=== PATIENT | male | born 1970 | race Caucasian/White ===

== ENCOUNTER → 2018-06-23 | Outpatient (CLI) | payer OTHER, SELFPAY ==
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
--- NOTE | 2018-06-23 06:40 | MRI_ITS ---
STUDY: MRI BRAIN WITH AND WITHOUT CONTRAST (ATTENTION INTERNAL AUDITORY CANALS - I.A.C.'s) REASON FOR EXAM: Male, 48 years old. Left tinnitus and hearing loss TECHNIQUE: Standardized multiplanar fat and water weighted pulse sequences were obtained. 17 IV Dotarem was administered for the contrast portion of the examination. COMPARISON: None. FINDINGS: Normal bilateral temporal bones. Normal bilateral internal auditory canals. There is no demonstrated intracanalicular or cisternal vestibular schwannoma (acoustic neuroma). There is no enhancement of the bilateral VIIth or VIIIth cranial nerves. Normal bilateral cochlea, vestibules and semicircular canals. Normal size of the ventricles and extra-axial spaces for the patient's age. Normal white matter tracts of the supratentorial brain. Normal bilateral basal ganglia. Normal thalami. Normal flow voids within the major intracranial circulation suggesting patency by spin echo criteria. Normal venous enhancement. There is no enhancing intra-axial or extra-axial abnormality. There is no extra-axial fluid accumulation. Normal sella turcica, pituitary gland, infundibular stalk, optic chiasm and hypothalamus. Normal tectal plate and pineal gland. Normal midbrain, edinson and medulla. Normal cerebellum. Normal basal cisterns. No demonstrated orbital abnormality, within the constraints of a routine brain study. Normal visualized paranasal sinuses. There is left nasal mucosal thickening and left nasal cavity narrowing. Normal calvarium and skull base. Normal visualized soft tissue structures. Normal visualized upper cervical spine. MRI/Brain W/WO Contrast IMPRESSION: Normal unenhanced and enhanced MRI of the bilateral internal auditory canals (I.A.C's). Electronically Signed: Yung Almaraz, at 11:46 EDT Tel , Service support ,
== END | disposition home or self-care (01) ==
PROVIDERS: Family Provider Family Medicine; PCP Family Medicine; Referring Provider Otolaryngology Otolaryngology/Facial Plastic Surgery; Visit Provider Otolaryngology Otolaryngology/Facial Plastic Surgery
DX: H93.12 Tinnitus, left ear (principal); H91.92 Unspecified hearing loss, left ear; M54.2 Cervicalgia
CPT/HCPCS: 70553; 72156; A9575

== ENCOUNTER → 2018-07-29 07:57 | Outpatient (CLI) | payer OTHER, SELFPAY ==
--- NOTE | 2018-07-29 07:58 | RAD_ITS ---
HISTORY: neck pain COMPARISON: Cervical spine MRI 06/23/2018 FINDINGS: XR Spine Cervical with lateral flexion-extension views for total 4 views Cervical vertebra show normal height and alignment. No fracture or suspicious bony lesion. With flexion and extension, adequate cervical spine mobility. No vertebral subluxation to suggest spinal instability. C5-6 and C6-7 disc space narrowing accompanied by anterior endplate spurring. The posterior elements appear intact. No spondylolisthesis. As visualized, the C1-C2 relationship appears normal. RAD/Cerv Spine 4 or 5 Views IMPRESSION: 1. C5-6 and C6-7 degenerative disc disease and spondylosis. 2. Normal cervical vertebral alignment. 3. No abnormal cervical motion to suggest cervical instability. at 0107 Reported and signed by: Murali Levine MD Electronically Signed: Murali Levine, at 1:06 EDT Tel , Service support ,
== END ==
PROVIDERS: Family Provider Family Medicine; PCP Family Medicine; Referring Provider Orthopaedic Surgery; Visit Provider Orthopaedic Surgery
DX: M54.12 Radiculopathy, cervical region (principal)
CPT/HCPCS: 72050

== ENCOUNTER 2018-09-11 09:00 | Outpatient (RCR) | payer OTHER, SELFPAY ==
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
--- NOTE | 2018-09-11 09:31 | HP.PTDCSUM ---
HP - PT D/C Summary It has been my pleasure to treat FRANNIE BOLANOS under orders from Ebonie Vargas MD, for the diagnosis of NECK PAIN for a total of 9 visit(s). Discharge Date: 09/11/18 Please see the following information for a summary of their discharge status. - Subjective Subjective: Doing much better ..increase ROM and able to do all work demands . - Pain Left Neck Pain Intensity (Out of 10): 0 - Objective Objective/Function: POSTURE: mild rounded shoulders. MMT: 5/5. CERVICAL ROM: flexion min loss,lateral flexion/rotation min/mod loss ,extension mod loss - Goals Goal 1:: Independant with HEP Goal Progress: Goal Met Goal 2:: Improve posture for ADL'S Goal Progress: Goal Met Goal 3:: Patient to decrease cervical pain by 70% or greater to improve function. Goal Progress: Goal Met Goal 4:: Patient to improve cervical ROM to improve function of recovery especially to left. Goal Progress: Goal Met Goal 5:: Patient to improve neck owestry by 5 points or greater to improve QOL. Goal Progress: Goal Met - Plan Plan: D/C TO HEP AND TRACTION UNIT - D/C Information Discharge Comments: HEP AND HOME CERVICAL TRACTION If there are questions or concerns regarding this patient's physical therapy, please feel free to call me at [phone]. Thank you for the referral of this patient. Sincerely, Kunal Lara, PT, Cert MDT, OCS
--- NOTE | 2018-09-11 09:36 | HP.PTDCSUM ---
HP - PT D/C Summary It has been my pleasure to treat FRANNIE BOLANOS under orders from Ebonie Vargas MD, for the diagnosis of NECK PAIN for a total of 9 visit(s). Discharge Date: 09/11/18 Please see the following information for a summary of their discharge status. - Subjective Subjective: Doing much better ..increase ROM and able to do all work demands . - Pain Left Neck Pain Intensity (Out of 10): 0 - Overall Improvement % Improvement: 75 - Objective Objective/Function: POSTURE: mild rounded shoulders. MMT: 5/5. CERVICAL ROM: flexion min loss,lateral flexion/rotation min/mod loss ,extension mod loss - Goals Goal 1:: Independant with HEP Goal Progress: Goal Met Goal 2:: Improve posture for ADL'S Goal Progress: Goal Met Goal 3:: Patient to decrease cervical pain by 70% or greater to improve function. Goal Progress: Goal Met Goal 4:: Patient to improve cervical ROM to improve function of recovery especially to left. Goal Progress: Goal Met Goal 5:: Patient to improve neck owestry by 5 points or greater to improve QOL. Goal Progress: Goal Met - Plan Plan: D/C TO HEP AND TRACTION UNIT - D/C Information Discharge Comments: HEP AND HOME CERVICAL TRACTION If there are questions or concerns regarding this patient's physical therapy, please feel free to call me at [phone]. Thank you for the referral of this patient. Sincerely, Kunal Lara, PT, Cert MDT, OCS
== END 2018-09-11 19:00 | disposition home or self-care (01) ==
LOC: PT 09:00
PROVIDERS: Family Provider Family Medicine; PCP Family Medicine; Visit Provider Orthopaedic Surgery
DX: M54.2 Cervicalgia (principal)
CPT/HCPCS: 97012; 97140; 97161

== ENCOUNTER 2018-10-03 22:33 | Emergency (ER) | payer OTHER, SELFPAY ==
[2018-10-03 22:34] VITALS: BP 86/56; PULSE 87; RESP 16; TEMP 36.8; O2SAT 98; BMI 29.9
[2018-10-03 22:54] VITALS: RESP 20
--- NOTE | 2018-10-03 23:09 | ED.VIS.GI ---
History of Present Illness Chief Complaint: Nausea/Vomiting Informant: Patient - Abdominal Pain/Flank Pain Onset: Hours - 2 Context: Sudden Onset - during car ride home from restaurant Timing: Continuous Quality: Cramping Location: Diffuse Current Severity: Mild Maximum Severity: Mild Worsened by: Food Relieved by: Nothing - Nausea/Vomiting/Emesis GI Symptom: Nausea, Vomiting Onset: Hours - 2 Quality: Nonbilious. Negative for: Blood streaks, Coffee ground, Hematemesis Severity: Severe - Diarrhea/Melena/Hematochezia GI Symptom: Negative for: Diarrhea, Melena, Hematochezia Associated Symptoms: Negative for: Dysuria, Frequency, Hematuria Narrative: Patient started vomiting on the restaurant tonight, he had steak and scallops in a nice restaurant in [place] that he was taking his to for their anniversary. He states earlier today, around 9-10 hours ago now, he had a grilled ham sandwich with tomato, lettuce, mayonnaise and was brought home by someone for him. He has had no diarrhea, near-syncope, or other symptoms. No recent antibiotics, hospitalization, or travel out of the area or the country. Past Medical History - Allergies and Home Meds Allergies/Adverse Reactions: Allergies No Known Allergies Allergy (Verified 10/03/18 22:37) Primary Care Physician: Jair Mann III, MD [Primary Care Provider] - Past Medical History: None Surgical History: no surgical history Lives: Spouse/ Significant Other Smoking Status: Never smoker Review of Systems General: Reports: Malaise. Denies: Chills, Fever Eyes: Denies: Visual changes - bilaterally, Diplopia ENT: Denies: Rhinorrhea, Sore throat Cardiovascular: Denies: Chest pain, Palpitations Respiratory: Denies: Dyspnea, Cough, Dyspnea on exertion Gastrointestinal: Reports: Abdominal pain, Nausea, Vomiting. Denies: Diarrhea, Melena, Hematochezia Genitourinary: Denies: Dysuria, Hematuria, Frequency Musculoskeletal: Denies: Back pain, Extremity Pain Skin: Denies: Rash, Wounds Neurological: Denies: Headache, Weakness, Numbness Physical Exam Vital Signs/Narrative: Vital Signs Temp Pulse Resp BP Pulse Ox 10/03/18 22:54 20 H 10/03/18 22:34 98.2 F 87 16 86/56 L 98 Inital Vital Signs reviewed: Yes General: Well nourished, Well developed, No Acute Distress Head: Normocephalic, Atraumatic Eyes: Perrl, EOMI ENT: Moist mucous membranes, No rhinorrhea Neck: Supple, Nontender Cardiovascular: Regular rate, Regular rhythm, No murmurs. Negative for: Tachycardia Respiratory: No distress, CTA bilaterally, Chest nontender Abdomen: Soft, Nontender, Nondistended, Normal bowel sounds Back: Nontender, Normal Inspection Extremities: Nontender, No edema Skin: Normal color, No rash, No Trauma Neurological: Alert, Oriented x3, Cranial nerves II-XII grossly intact, Normal Strength, Normal Sensation Psychological: Normal affect, Normal Mood Diagnostic/Tx/Re-eval - Medical Decision Making Patient was treated with IV fluids and Zofran on reevaluation he is feeling much better and tolerating oral fluids. No further vomiting in the emergency department and has developed no other symptoms. In further discussion he had some coleslaw at lunchtime as well, basically several foods containing mayonnaise and there are heat warnings out, and the food was delivered to him and unknown how long it had been since it had been served or its conditions, my suspicion is that he has had staphylococcal food poisoning from that. Supportive care is indicated for this, if he develops other issues like diarrhea or intractable vomiting he is encouraged to return to the ER, prescribe Zofran and he is comfortable with this plan. ED Disposition - Plan for ED Patient: Disposition: Home or Assisted Living Diagnosis: Acute gastritis without bleeding, Staphylococcal food poisoning Instructions: VOMITING (6y-Adult), FOOD POISONING (6yr-Adult) Prescriptions: Ondansetron [Zofran] 8 mg PO Q8H PRN #12 tab PRN Reason: Nausea/Vomiting Prescription Printed Referrals: Jair Mann III, MD [Primary Care Provider] - (2 to 3 days if not improving, or return to the ER)
[2018-10-03] MEDS: Ondansetron 4 MG/2 ML Vial IV (23:27)
[2018-10-04 01:14] VITALS: BP 118/75; RESP 16; O2SAT 95
[2018-10-04 01:25] VITALS: BP 108/72; PULSE 80; RESP 16; O2SAT 95
== END 2018-10-04 01:50 | disposition home or self-care (01) ==
PROVIDERS: Emergency Provider Emergency Medicine; Family Provider Family Medicine; PCP Family Medicine
DX: K29.00 Acute gastritis without bleeding (principal); A05.0 Foodborne staphylococcal intoxication
CPT/HCPCS: 99285; J7040; A4216; J2405

== ENCOUNTER 2021-06-29 10:35 | Outpatient (CLI) | payer OTHER, SELFPAY ==
[2021-06-29 12:25] LABS: AST(SGOT) 26 U/L (15-37); Alanine Aminotransfer ALT/SGPT 61 U/L (16-61); Albumin, Serum 4.3 g/dL (3.2-5.0); Alkaline Phosphatase 82 U/L (45-117); Anion Gap 6 (5-15); BUN 17 mg/dL (7-18); BUN/Creat Ratio 15.5 RATIO (10-20); Bilirubin, Direct 0.18 mg/dL (0.00-0.30); Chloride 103 mmol/L (98-107); Cholesterol 191 mg/dL (200); EST Glomerular Filtration Rate 76 mL/min (>60); Est Glom Filt Rate - Afr Amer 91 mL/min (>60); Globulin 3.5 g/dL (2.2-4.2); Glucose 105 mg/dL (74-106); High Density Lipoprotein 54 mg/dL; Protein, Total 7.8 g/dL (6.4-8.2); Sodium Level 134 mmol/L (136-145); Triglycerides 162 mg/dL; Very Low Density Lipoprotein 32 mg/dL (5-40)
== END 2021-06-29 23:59 | disposition home or self-care (01) ==
LOC: MFPLAB 10:36
PROVIDERS: PCP Family Medicine; Referring Provider Family Medicine; Visit Provider Family Medicine
DX: I10 Essential (primary) hypertension (principal); Z72.89 Other problems related to lifestyle
CPT/HCPCS: 36415; 80048; 80061; 80076

== ENCOUNTER → 2022-07-04 | Outpatient (CLI) | payer BC, SELFPAY ==
[2022-07-04 10:42] LABS: Hemoglobin A1c 5.1 % (3.8-5.6)
[2022-07-04 10:59] LABS: Anion Gap 5 (5-15); BUN 16 mg/dL (7-18); BUN/Creat Ratio 14.7 RATIO (10-20); Calcium,Total 9.4 mg/dL (8.5-10.1); Chloride 102 mmol/L (98-107); Cholesterol 201 mg/dL (200); Creatinine, Serum 1.09 mg/dL (0.70-1.30); EST Glomerular Filtration Rate 76 mL/min (>60); Est Glom Filt Rate - Afr Amer 92 mL/min (>60); Glucose 116 mg/dL (74-106); High Density Lipoprotein 51 mg/dL; PSA,Total - Annual Screen 0.86 ng/mL (0.00-4.00); Sodium Level 134 mmol/L (136-145); Triglycerides 249 mg/dL; Very Low Density Lipoprotein 50 mg/dL (5-40)
== END | disposition home or self-care (01) ==
LOC: MFPLAB 09:27
PROVIDERS: PCP Family Medicine; Referring Provider Family Medicine; Visit Provider Family Medicine
DX: I10 Essential (primary) hypertension (principal); Z12.5 Encounter for screening for malignant neoplasm of prostate; R53.83 Other fatigue
CPT/HCPCS: 36415; 80048; 80061; 83036; 84153; 84403; G0103

== ENCOUNTER → 2022-08-07 | Outpatient (CLI) | payer BC, SELFPAY ==
[2022-08-11 15:07] LABS: Testosterone, % Free 2.48 % (1.50-4.20); Testosterone, Free 7.51 ng/dL (5.00-21.00); Testosterone, Total 303 ng/dL (264-916)
== END | disposition home or self-care (01) ==
LOC: MFPLAB 08:22
PROVIDERS: PCP Family Medicine; Visit Provider Family Medicine
DX: R79.89 Other specified abnormal findings of blood chemistry (principal)
CPT/HCPCS: 36415; 84402; 84403

== ENCOUNTER → 2022-12-26 | Outpatient (CLI) | payer BC, SELFPAY ==
[2022-12-31 12:08] LABS: Testosterone, % Free 2.88 % (1.50-4.20); Testosterone, Free 6.83 ng/dL (5.00-21.00); Testosterone, Total 237 ng/dL (264-916)
== END | disposition home or self-care (01) ==
LOC: MFPLAB 08:13
PROVIDERS: PCP Family Medicine; Visit Provider Family Medicine
DX: R79.89 Other specified abnormal findings of blood chemistry (principal)
CPT/HCPCS: 36415; 84402; 84403

== ENCOUNTER 2024-10-12 12:38 | Emergency (ER) | payer BC, SELFPAY ==
[2024-10-12 12:39] VITALS: BP 140/97; PULSE 102; RESP 20; TEMP 36.6; O2SAT 98; BMI 30.4
--- NOTE | 2024-10-12 13:36 | ED.VIS.GI ---
HPI HPI - GI History of Present Illness Chief Complaint: Nausea/Vomiting Informant: patient Abdominal Pain/Flank Pain Onset: Yesterday Context: Sudden Onset Timing: Continuous Quality: Cramping Location: RLQ and LLQ Worsened by: Nothing Relieved by: Nothing Nausea/Vomiting/Emesis GI Symptom: Positive for Nausea; Negative for Vomiting Diarrhea/Melena/Hematochezia GI Symptom: Positive for Diarrhea and Hematochezia Stool Quality: Positive for BRB per rectum Episodes: 8 Associated Symptoms Associated Symptoms: Negative for Dysuria, Frequency or Hematuria Narrative Narrative: Patient presents with abdominal pain and hematochezia that began yesterday. Patient states she started having some lower abdominal pain yesterday. Patient states it felt like it was cramping. Patient states nothing makes it better and nothing makes it worse. Patient admits to some nausea but denies any vomiting. Patient states she started having watery diarrhea. Patient states that he developed bright red rectal bleeding. Patient states he has had approximately 8 episodes of rectal bleeding today. Patient denies any urinary complaints. Patient denies any fevers or chills but admits to some sweats. [facility] Medical History (Updated 10/12/24 @ 16:[address] Tera Ashton, DO) Sleep apnea Anxiety HTN (hypertension) Home Medications ?Medication ?Instructions ?Recorded ?Last Taken ?Type citalopram 10 mg tablet PO 90 days #45 tabs 07/29/18 Unknown History ondansetron HCl 8 mg tablet 8 mg PO Q8H PRN Nausea/Vomiting 10/04/18 Unknown Rx #12 tabs amlodipine 10 mg tablet 10 mg PO DAILY 10/12/24 Unknown History amoxicillin 875 mg-potassium 875 mg PO Q12H #20 TABLETS 10/12/24 Unknown Rx clavulanate 125 mg tablet hydrocodone-acetaminophen 5-325mg 1 tab PO Q6H PRN PRN Pain 3 days 10/12/24 Unknown Rx 5mg-325mg #10 TABLETS lisinopril 20 1 tab PO DAILY 10/12/24 Unknown History mg-hydrochlorothiazide 12.5 mg tablet Allergy/AdvReac Type Severity Reaction Status Date / Time No Known Allergies Allergy Verified 10/12/24 12:40 Surgical History (Updated 10/12/24 @ 16:[address] Tera Ashton, DO) Hx of vasectomy Social History Smoking Status: Never smoker ROS ROS ED Constitutional Constitutional ED: Reports sweats; Denies chills or fever(s) Eyes Eyes: Denies blurry vision or change in vision ENT ENT ED: Denies rhinorrhea or sore throat Cardiovascular Cardiovascular: Denies chest pain or palpitations Respiratory/Chest Respiratory/Chest: Denies cough or dyspnea Gastrointestinal Gastrointestinal: Reports abdominal pain, diarrhea and nausea; Denies vomiting Genitourinary Genitourinary ED: Denies dysuria or hematuria Musculoskeletal Musculoskeletal: Denies back pain or neck pain Integumentary Denies abscess or rash Neurologic Neurologic: Denies headache(s) or weakness Allergic/Immunologic Allergic/Immunologic ED: Denies mouth swelling or urticaria EXAM Physical Exam Const Vital Signs: 10/12/24 12:39 10/12/24 14:39 Temperature 97.9 F Temperature Source Oral Pulse Rate 102 H 93 Respiratory Rate 20 H 16 Blood Pressure 140/97 H 139/94 H Blood Pressure Mean 111 109 Pulse Ox 98 99 Oxygen Delivery Method Room Air Positive well nourished and well developed Constitutional Narrative: BMI is 30.5. General Appearance ED: well developed and NAD HEENT Reports moist mucous membranes Neck supple and no JVD Resp normal respiratory effort and clear to auscultation bilaterally Cardio regular rate and regular rhythm GI non-distended GI Narrative: Rectal exam showed good sphincter tone. There is a small amount of brown stool. This was Hemoccult positive. Palpation: soft and tender LLQ, RLQ, LUQ, suprapubic and Rovsing's sign (Negative); Negative for guarding or rebound tenderness present Extremity full ROM Neuro CN's II-XII intact bilaterally, moves all extremities and no sensory deficits noted Sensorium / Orientation: alert Motor Exam: strength 5/5 throughout MDM MDM MDM Narrative Medical decision making narrative: Differential diagnosis includes diverticulitis, lower gastrointestinal bleeding, colitis, urinary tract infection, and coagulopathy. CT scan of the abdomen pelvis will be obtained to assess for colitis, diverticulitis, bowel obstruction, perforation. CBC will be obtained to assess for leukocytosis and anemia. Comprehensive metabolic profile will be obtained to assess for hepatic function, renal function, and electrolyte abnormality. PT with INR and PTT will be obtained to assess for coagulopathy. Stool for occult blood will be obtained to assess for lower gastrointestinal bleeding. Urinalysis will be obtained to assess for urinary tract infection and hematuria. Lab Data Attestation: I reviewed the patient's lab results. Lab results narrative: CBC was reviewed. There is a slight leukocytosis of 12.9. Hemoglobin was actually elevated at 17.0. Platelets were normal. PT with INR and PTT were reviewed and were within normal limits. Comprehensive metabolic profile was reviewed. BUN was 20 and creatinine was slightly elevated at 1.23. Glucose was slightly elevated at 116. The remainder is within normal limits. Urinalysis was reviewed. There is no evidence of urinary tract infection or hematuria. Labs: Laboratory Results - last 24 hr 10/12/24 10/12/24 11:40 13:30 WBC 12.9 H RBC 5.43 Hgb 17.0 H Hct 48.2 MCV 88.8 MCH 31.3 MCHC 35.3 RDW Std Deviation 40.4 RDW Coeff of Jacob 12.4 Plt Count 253 MPV 11.6 Immature Gran % (Auto) 0.300 Neut % (Auto) 84.4 H Lymph % (Auto) 9.6 L [place] % (Auto) 5.1 Eos % (Auto) 0.3 Baso % (Auto) 0.3 Absolute Neuts (auto) 10.9 H Absolute Lymphs (auto) 1.23 Nucleated RBC % 0 PT 12.7 INR 0.9 APTT 28.3 Sodium 136 Potassium 4.2 Chloride 100 Carbon Dioxide 22.3 Anion Gap 14 BUN 20 H Creatinine 1.23 H Estim Creat Clear Calc 74.49 Est GFR (MDRD) Non-Af 71 BUN/Creatinine Ratio 16.3 Glucose 116 H Calcium 9.9 Total Bilirubin 0.76 AST 23 ALT 30 Alkaline Phosphatase 92 Total Protein 7.9 Albumin 4.7 Globulin 3.2 Albumin/Globulin Ratio 1.5 Urine Color Yellow Urine Clarity Clear Urine pH 6.0 Ur Specific [place] 1.015 Urine Protein 30 H Urine Glucose (UA) Normal Urine Ketones Negative Urine Occult Blood Negative Urine Nitrite Negative Urine Bilirubin Negative Urine Urobilinogen Normal Ur Leukocyte Esterase 25 H Urine RBC 0 SEEN Urine WBC 0-5 SEEN Ur Squamous Epith Cells 0 SEEN Urine Bacteria 0 SEEN Urine Mucus 1+ Radiography Diagnostic Testing: Clinical Impression(s) from Imaging Studies Abdomen/Pelvis CT 10/12/24 13:59 IMPRESSION: Findings suggestive of colitis of the descending colon and sigmoid colon as described. Diffuse fatty infiltration of the liver. Reading Location: [id number] scan of the abdomen and pelvis was obtained. There is colitis of the descending colon and sigmoid colon. There is sigmoid diverticulosis. There is no free air or free fluid. This was interpreted by the radiologist and was also independently reviewed by myself. Treatment and Re-Evaluation :: Patient was given IV fluids, morphine, and Zofran. Patient was given a dose of Zosyn here. Patient was advised of his findings. Patient has a Hancock score of 7. Patient was given prescription for Augmentin. Patient was instructed to follow-up with his primary care physician in 5 to 7 days. Patient was instructed to return if worse in any way. Patient understood and was agreeable with the plan. All questions were answered. Discharge Plan Triage Chief Complaint: Nausea/Vomiting ED Provider: Tera Ashton Dx/Rx/DC Orders Clinical Impression: Colitis, Lower gastrointestinal bleeding, Diverticulosis Instructions: ED Understanding Colitis, ED Diverticulosis Prescriptions: New amoxicillin-pot clavulanate 875-125 mg tablet 875 mg PO Q12H Qty: 20 0RF hydrocodone-acetaminophen 5-325 mg tablet 1 tab PO Q6H PRN PRN (Reason: Pain) 3 Days Qty: 10 0RF No Action citalopram 10 mg tablet PO 90 Days Qty: 45 ondansetron HCl 8 MG tablet 8 mg PO Q8H PRN (Reason: Nausea/Vomiting) Qty: 12 0RF lisinopril-hydrochlorothiazide 20-12.5 mg tablet 1 tab PO DAILY amlodipine 10 mg tablet 10 mg PO DAILY Primary Care Provider: Prosper Galicia Referrals: Prosper Galicia MD [Primary Care Provider] - 3-5 Days Print Language: Serbian Disposition Disposition: Home, Self Care
--- NOTE | 2024-10-12 13:59 | CT_ITS ---
PROCEDURE: ABDOMEN/PELVIS W IV CONT ONLY 10/12/2024 REASON FOR EXAM: ABDOMINAL PAIN TECHNIQUE: ABDOMEN/PELVIS W IV CONT ONLY Coronal and Sagittal reconstruction series were provided. CONTRAST: Isovue-300 VOLUME: 95 mL One or more dose reduction techniques were used (e.g., Automated exposure control, adjustment of the mA and/or kV according to patient size, use of iterative reconstruction technique. RADIATION DOSE SUMMARY: CTDlvol: 11.25 mGy DLP: 739.79 mGycm COMPARISON: None FINDINGS: Lung bases: Unremarkable Liver: Diffuse fatty infiltration. Gallbladder: Unremarkable Spleen: Normal size. Pancreas: Normal size without evidence of mass surrounding inflammation or ductal dilation. Adrenals: Unremarkable Kidneys: Normal renal sizes. No hydronephrosis. Bladder: Unremarkable Bowel: Circumferential wall thickening and increased markings in the surrounding peritoneal fat in the descending colon as well as sigmoid colon. Colitis should be ruled out. There is also evidence of sigmoid diverticulosis. Appendix: Visualized and unremarkable. Lymph nodes: No suspicious lymph node enlargement. Vasculature: Mild diffuse atherosclerotic calcifications are noted. Bones: Unremarkable CT/Abdomen/Pelvis W IV Cont ONLY IMPRESSION: Findings suggestive of colitis of the descending colon and sigmoid colon as vijay cribed. Diffuse fatty infiltration of the liver. Reading Location: [facility]
[2024-10-12 14:16] LABS: Hematocrit 48.2 % (40-54); Hemoglobin 17.0 g/dL (13.0-16.5); Immature Granulocytes Count 0.040 X10^3/uL (0.0-0.0); Mean Corp Hgb Conc 35.3 g/dL (32-36); Mean Corpuscular Volume 88.8 fL (80-94); Mean Platelet Vol. 11.6 fl (6.2-12.0); NRBC Flagged by Analyzer 0 % (0-5); Platelet Count 253 K/mm3 (150-450); RBC Distribution Width CV 12.4 % (11.6-14.6); RBC Distribution Width SD 40.4 fl (35.1-43.9); Red Blood Count 5.43 M/mm3 (4.6-6.2); White Blood Count 12.9 K/mm3 (4.4-11.0)
[2024-10-12 14:24] LABS: Partial Thromboplast Time 28.3 Seconds (24.1-36.2); Prothrombin Time (Protime)PT. 12.7 SECONDS (11.7-14.9)
[2024-10-12] MEDS: 0.9% Normal Saline (1000mL) 1,000 ML 999 ML IV (14:36)
[2024-10-12 14:39] VITALS: BP 139/94; PULSE 93; RESP 16; O2SAT 99
[2024-10-12 14:41] LABS: AST(SGOT) 23 U/L (<=37); Alanine Aminotransfer ALT/SGPT 30 U/L (<=46); Albumin, Serum 4.7 g/dL (3.5-5.0); Alkaline Phosphatase 92 U/L (40-129); Anion Gap 14 (5-15); BUN 20 mg/dL (4-19); BUN/Creat Ratio 16.3 RATIO (10-20); Calcium,Total 9.9 mg/dL (7.6-11.0); Carbon Dioxide 22.3 mmol/L (21.0-32.0); Chloride 100 mmol/L (98-108); Estimated Creatinine Clearance 74.49 ml/min (50-250); Globulin 3.2 g/dL (2.2-4.2); Glucose 116 mg/dL (70-99); Potassium 4.2 mmol/L (3.3-5.1)
[2024-10-12 14:48] LABS: Red Blood Cells-Urine 0 SEEN /hpf (0-5); Squamous Epithelial Cells - UA 0 SEEN /hpf (0-5)
[2024-10-12 14:49] LABS: Color, Urine Yellow (Yellow); Glucose, Dipstick Normal (Normal); Ketone-Dipstick Negative (Negative); Leukocyte Esterase-Dipstick 25 /ul (Negative); Nitrite-Dipstick Negative (Negative); Occult Blood-Urine Negative /ul (Negative); Protein-Dipstick 30 mg/dl (Negative); Specific Gravity, Urine 1.015 (1.002-1.030); Urine Bilirubin Dipstick Negative (Negative)
[2024-10-12 14:55] LABS: Mucous, Urine 1+ /hpf (<or=2+)
[2024-10-12] MEDS: Piperacil/Tazobactam 4.5 GM in 0.9% Normal Saline (100mL MB+) 100 ML IV (16:03)
[2024-10-12 16:59] VITALS: BP 156/99; PULSE 88; RESP 16; TEMP 36.8; O2SAT 97
== END 2024-10-12 17:03 | disposition home or self-care (01) ==
PROVIDERS: Emergency Provider Emergency Medicine; PCP Family Medicine; Visit Provider Emergency Medicine
DX: K52.9 Noninfective gastroenteritis and colitis, unspecified (principal); R11.0 Nausea; I10 Essential (primary) hypertension; K57.91 Diverticulosis of intestine, part unspecified, without perforation or abscess with bleeding; R10.31 Right lower quadrant pain; R10.32 Left lower quadrant pain; F41.9 Anxiety disorder, unspecified; Z79.899 Other long term (current) drug therapy; Z98.52 Vasectomy status
CPT/HCPCS: 74177; 80053; 81001; 82274; 85025; 85610; 85730; 96361; 96374; 96375; 96376; 99283; Q9967; A4216; J2405